=== PATIENT | female | born 1985 | race African-American/Black ===

== ENCOUNTER 2019-05-23 01:00 | Emergency (ER) | payer MEDICAID, OTHER ==
[~2019-05-23] VITALS: Ht 175.3 cm; Wt 82.0 kg
[2019-05-23] MEDS ORDERED: HYDROXYZINE 25MG TABLET PO ONE (02:30)
[2019-05-23] MEDS ORDERED: FAMOTIDINE 20MG TABLET PO ONE (02:30)
[2019-05-23] MEDS ORDERED: METHYLPREDNISOLONE SOD SUCC 125 MG/2 ML VIAL IM ONE (02:30)
[2019-05-23 03:31] VITALS: BP 155/75
== END 2019-05-23 03:33 | disposition home or self-care (01) ==
LOC: ER 01:00
DX: L29.9 Pruritus, unspecified (principal); L30.9 Dermatitis, unspecified; J45.909 Unspecified asthma, uncomplicated; Z91.018 Allergy to other foods; Z91.013 Allergy to seafood
CPT/HCPCS: 96372; 99283; J2930